=== PATIENT | female | born 1960 | race Caucasian/White ===

== ENCOUNTER → 2020-10-12 13:10 | Outpatient (REF) | payer OTHER, SELFPAY | LOC: ANHLAB 13:10 | PROVIDERS: PCP Internal Medicine; Visit Provider Nurse Practitioner | DX: L98.0 Pyogenic granuloma (principal) | CPT/HCPCS: 88305 ==

== ENCOUNTER → 2022-07-09 13:12 | Outpatient (CLI) | payer OTHER, SELFPAY ==
--- NOTE | ~2022-07-09 | DEXA_ITS ---
Bone Density Report Name: LANDRY IRBY Age: 61 Sex: Female Ethnicity: White Date of : 1960 Indication: postmenopausal; screening for osteoporosis; Referring Provider: RADHIKA WALLER Study: Bone densitometry was performed. Exam Date: July 09, 2022 Accession number: [id number] Bone Density: Region BMD T-score Z-score Classification AP Spine (L1-L4) 1.022 -0.2 1.4 Normal Femoral Neck (Left) 0.990 1.3 2.7 Normal Total Hip (Left) 0.989 0.4 1.5 Normal Femoral Neck (Right) 0.826 -0.2 1.2 Normal Total Hip (Right) 1.003 0.5 1.6 Normal Total Hip Mean 0.996 0.5 1.6 Normal World Health Organization criteria for BMD impression classify patients as: Normal (T-score at or above -1.0), Osteopenia (T-score between -1.0 and -2.5), or Osteoporosis (T-score at or below -2.5). 10-year Fracture Risk: FRAX not reported because: All T-scores for Spine Total, Hip Total, Femoral Neck at or above -1.0 Previous Exams: Region Exam Age BMD T-score BMD Change BMD Change Date g/cm2 vs Baseline vs Previous AP Spine(L1-L4) 07/09/2022 61 1.022 -0.2 -0.056* -0.034* 04/13/2015 54 1.056 0.1 -0.022 -0.022 03/25/2013 52 1.079 0.3 Total Hip(Left) 07/09/2022 61 0.989 0.4 -0.001 0.026 04/13/2015 54 0.964 0.2 -0.026 -0.026 03/25/2013 52 0.990 0.4 Total Hip(Right) 07/09/2022 61 1.003 0.5 0.027* 0.026 04/13/2015 54 0.977 0.3 0.001 0.001 03/25/2013 52 0.975 0.3 *Denotes significance at 95% confidence level, LSC for AP Spine = 0.022 g/cm2, LSC for Total Hip = 0.027 g/cm2 Clinical Information Provided by Patient: Has used the following medications: Vitamin D, MTV Patient maximum height was 64.5 Menopause Age: 52 No regular weight bearing exercise Drinks caffeinated beverages Onset of menses at age 11 Number of children 3 Impression: The patient has normal bone mass. The BMD for the AP Spine(L1-L4) decreased, changing by -0.034 since the last DXA exam. Discussion: BONE DENSITY IS ABOVE THE MINIMUM DESIRABLE LEVEL AT ALL SKELETAL SITES TESTED. This patient?s bone mineral density is above the minimum desirable level (T-score -1.0 or better) at all sites measured. The patient should follow a healthful lifestyle (good nutrition with adequate calcium and vitamin D, and appropriate weight-bearing exercise). Follo
== END ==
PROVIDERS: PCP Obstetrics & Gynecology Gynecology; Visit Provider Obstetrics & Gynecology Gynecology
DX: Z78.0 Asymptomatic menopausal state (principal)
CPT/HCPCS: 77080

== ENCOUNTER → 2023-04-07 10:00 | Outpatient (CLI) | payer OTHER, SELFPAY ==
--- NOTE | ~2023-04-07 | MM_ITS ---
EXAMINATION: MM screening tanmay BI w lois HISTORY: Screening TECHNIQUE: Craniocaudal and mediolateral oblique 3-D tomosynthesis images were obtained and synthetic 2-D images were generated. CAD analysis was submitted and interpreted. COMPARISON: Comparison to multiple prior studies sequentially, with oldest reviewed study dated 04/11. BREAST PARENCHYMAL COMPOSITION: There are scattered areas of fibroglandular density. FINDINGS: There is no evidence of suspicious mass, calcification, or architectural distortion to sugg est malignancy in either breast. There has been no suspicious interval change. IMPRESSION: 1. No mammographic evidence of malignancy. 2. Recommend routine screening mammography in one year. BI-RADS Category 1: Negative Reviewed, dictated and finalized at location A.
== END ==
PROVIDERS: PCP Obstetrics & Gynecology Gynecology; Visit Provider Obstetrics & Gynecology Gynecology
DX: Z12.31 Encounter for screening mammogram for malignant neoplasm of breast (principal)
CPT/HCPCS: 77063; 77067

== ENCOUNTER 2023-12-09 00:37 | Day surgery (SDC) | payer OTHER, SELFPAY ==
[2023-11-24 13:50] VITALS: BMI 29.2
--- NOTE | 2023-12-09 12:01 | P.PNAN_ITS ---
Anes - Initial Pre Proc Eval Procedure: Operation Date: 12/09/23 12:30 Proposed Procedures p Colonoscopy - Johnny Hurley MD Date/Time: 12/09/23 12:01 Surgeon: Johnny Hurley MD Pre Op Diagnosis: ulcerative colitis, unspecified Patient Data Age: 63 Gender: F Height: 1.63 m Weight: 77.2 kg Allergies Allergy/AdvReac Type Severity Reaction Status Date / Time NSAIDS (Non-Steroidal Allergy Severe Swelling Verified 12/09/23 12:01 Anti-Inflamma of Lip/Tongue/Throat Home Medications Medication Instructions Recorded Confirmed Type olmesartan 20 mg tablet 20 mg PO DAILY 10/02/20 11/24/23 History atorvastatin 10 mg tablet 10 mg PO DAILY 11/24/23 11/24/23 History cholecalciferol (vitamin D3) 50 50 mcg PO DAILY 11/24/23 11/24/23 History mcg (2,000 unit) capsule (Vitamin D3) fwcioklg-ifl-pkxmz ac 400 1 tablet PO DAILY 11/24/23 11/24/23 History mcg-calcium carb 500 mg-vit K1 20 mcg tablet (Women's 50 Plus Multivitamin) omega-3 fatty acids 2,400 mg PO BID 11/24/23 11/24/23 History Patient hx anesthesia problems: none Family hx anesthesia problems: none Results Review: All pre-operative results and documents have been reviewed as part of the pre- operative evaluation. FOR[facility]LY [facility] Past Medical History Medical History Hypertension Overweight Ulcerative colitis Surgical History Surgical History History of breast surgery Removal of calcifications History of tubal ligation Family History Family History Mother Acute arthritis Father Diabetes mellitus Social History Social History Smoking status: Never smoker Alcohol intake: current Substance use: never Substance use type: does not use Living arrangements: with family Spiritual care concerns: No Anes - Eval Final PreProcedure Day of Procedure 12/09/23 12:01 Patient weight: normal Heart: regular rate and rhythm Lungs: clear to auscultation Airway: Mallampati scale class II Neurological: alert and oriented Last oral intake: >/= 8 hours ASA classification: II Emergent: no Anesthetic plan: proceed Anesthesia type and monitoring: general GIVS and standard monitoring Results Review: All pre-operative results and documents have been reviewed as part of the pre- operative evaluation. Informed Consent: The patient's anesthetic plan and its attendant risks and benefits were discussed with the patient/family/POA. Questions were solicited and answers provided to the satisfaction of the patient/family/POA.
[2023-12-09 12:02] VITALS: BP 143/73; PULSE 81; RESP 18; TEMP 36.5; O2SAT 97
[2023-12-09] MEDS: LACTATED RINGERS 1,000 ML 150 ML IV CONT (12:03)
--- NOTE | 2023-12-09 12:22 | PM.HPGS ---
History of Present Illness History of Present Illness Consent: Risks, benefits, and alternatives have been discussed and questions answered. Patient agrees to proceed with procedure. Chief complaint: colon screening Narrative: Annika Goldman is a 63 year old female here for screening colonoscopy, last one 5 years ago. She says that years ago diagnosed with colitis and took oral medication for some time. She denies any diarrhea or gi symptoms, not taking meds for GI condition. Review of Systems Review of Systems: All systems reviewed & are unremarkable except as noted in HPI and below PMFSH Past Medical History Medical History (Updated 12/09/23 @ 12:23 by Johnny Hurley MD) Colon cancer screening Hypertension Overweight Ulcerative colitis Surgical History Surgical History History of breast surgery Removal of calcifications History of tubal ligation Family History Family History Mother Acute arthritis Father Diabetes mellitus Social History Social History Smoking status: Never smoker Alcohol intake: current Substance use: never Substance use type: does not use Living arrangements: with family Spiritual care concerns: No Meds Home Medications and Allergies Home Medications Medication Instructions Recorded Confirmed Type olmesartan 20 mg tablet 20 mg PO DAILY 10/02/20 11/24/23 History atorvastatin 10 mg tablet 10 mg PO DAILY 11/24/23 11/24/23 History cholecalciferol (vitamin D3) 50 50 mcg PO DAILY 11/24/23 11/24/23 History mcg (2,000 unit) capsule (Vitamin D3) tupawhuy-ile-hwqez ac 400 1 tablet PO DAILY 11/24/23 11/24/23 History mcg-calcium carb 500 mg-vit K1 20 mcg tablet (Women's 50 Plus Multivitamin) omega-3 fatty acids 2,400 mg PO BID 11/24/23 11/24/23 History Allergies Allergy/AdvReac Type Severity Reaction Status Date / Time NSAIDS (Non-Steroidal Allergy Severe Swelling Verified 12/09/23 12:01 Anti-Inflamma of Lip/Tongue/Throat Vital Signs Vital Signs - 24 hr 12/09/23 12:02 Temperature 97.7 F Pulse Rate 81 Respiratory Rate 18 Blood Pressure 143/73 H Pulse Oximetry 97 Oxygen Delivery Room Air Exam Const: General: comfortable and no acute distress HENMT: Face/Nose/Sinus: Normal nares present Eyes: General: appearance normal, both eyes and all related structures Neck: Neck: no JVD Resp: Auscultation: clear to auscultation bilaterally Cardio: Rate: regular rate Rhythm: regular rhythm GI: Inspection: non-distended GI Palp: Yes Soft to palpation Skin: General skin exam: normal color Neuro: General: gait normal Speech: normal speech Extrem: General: normal to inspection Psych: Mental Status: mental status grossly normal Assessment and Plan Assessment and plan (1) Colon cancer screening: Code(s): Z12.11 - Encounter for screening for malignant neoplasm of colon Status: Acute Assessment and Plan: colonoscopy ? remote history of colitis- will assess today, she is asymptomatic and not taking any medication
[2023-12-09 12:43] VITALS: BP 87/45; PULSE 74; RESP 18; O2SAT 96
[2023-12-09 12:53] VITALS: BP 120/60; PULSE 76; RESP 20; O2SAT 97
[2023-12-09 13:03] VITALS: BP 119/70; PULSE 66; RESP 18; O2SAT 98
== END 2023-12-09 13:13 | disposition home or self-care (01) ==
PROVIDERS: PCP Internal Medicine; Visit Provider Internal Medicine Gastroenterology
PROC: 0DJD8ZZ Inspection of Lower Intestinal Tract, Via Natural or Artificial Opening Endoscopic (ICD-10-PCS; CPT 45378; principal; 2023-12-09 12:30)
DX: Z12.11 Encounter for screening for malignant neoplasm of colon (principal); K64.8 Other hemorrhoids; I10 Essential (primary) hypertension; Z87.19 Personal history of other diseases of the digestive system
CPT/HCPCS: 45378; J2001; J2704; J7120

== ENCOUNTER 2024-04-09 12:46 | Outpatient (CLI) | payer OTHER, SELFPAY ==
--- NOTE | ~2024-04-09 | MM_ITS ---
EXAMINATION: MM screening tanmay BI w lois HISTORY: Screening mammogram TECHNIQUE: Craniocaudal and mediolateral oblique 3-D tomosynthesis images were obtained and synthetic 2-D images were generated. CAD analysis was submitted and interpreted. COMPARISON: 04/07/2023, 11/04/2016 BREAST PARENCHYMAL COMPOSITION:Not Dense. There are scattered areas of fibroglandular density. FINDINGS: No suspicious mass, calcification, or architectural distortion are identified in either kinjal ast to suggest malignancy. There has been no suspicious interval change. IMPRESSION: No mammographic evidence of malignancy. Recommend routine screening mammography in one year. BI-RADS Category 1: Negative Reviewed, dictated and finalized at location .
== END 2024-04-09 12:47 | disposition home or self-care (01) ==
LOC: MICIMG 12:47
PROVIDERS: PCP Internal Medicine; Visit Provider Obstetrics & Gynecology Gynecology
DX: Z12.31 Encounter for screening mammogram for malignant neoplasm of breast (principal)
CPT/HCPCS: 77063; 77067

== ENCOUNTER 2025-04-12 11:22 | Outpatient (CLI) | payer MEDICARE, SELFPAY ==
--- NOTE | ~2025-04-12 | MM_ITS ---
EXAMINATION: MM screening tanmay BI w lois HISTORY: Screening TECHNIQUE: Craniocaudal and mediolateral oblique 3-D tomosynthesis images were obtained and synthetic 2-D images were generated. CAD analysis was submitted and interpreted. COMPARISON: 04/07/2023 BREAST PARENCHYMAL COMPOSITION: The breasts are heterogeneously dense, which may obscure small masses. FINDINGS: There is no evidence of suspicious mass, calcification, or architectural distortion to suggest malignancy. There has been no suspicious interval change. IMPRESSION: 1. No mammographic evidence of malignancy. Recommend routine screening mammography in one year. BI-RADS Category 2: Benign finding(s) Reviewed, dictated and finalized at location Q. IMPRESSION: 1. No mammographic evidence of malignancy. Recommend routine screening mammogra phy in one year. BI-RADS Category 2: Benign finding(s)
== END 2025-04-12 11:23 | disposition home or self-care (01) ==
LOC: MICIMG 11:23
PROVIDERS: PCP Internal Medicine; Visit Provider Obstetrics & Gynecology Gynecology
DX: Z12.31 Encounter for screening mammogram for malignant neoplasm of breast (principal)
CPT/HCPCS: 77063; 77067

== ENCOUNTER 2025-06-20 10:20 | Outpatient (CLI) | payer MEDICARE, SELFPAY ==
--- NOTE | ~2025-06-20 | DEXA_ITS ---
Bone Density Report Name: LANDRY IRBY Age: 64 Sex: Female Ethnicity: White Date of : 1960 Indication: postmenopausal; screening for osteoporosis; Referring Provider: RADHIKA WALLER Study: Bone densitometry was performed. Exam Date: June 20, 2025 Accession number: [id number] Bone Density: Region BMD T-score Z-score Classification AP Spine(L1-L4) 1.005 -0.4 1.4 Normal Femoral Neck (Left) 0.741 -1.0 0.6 Normal Total Hip (Left) 0.868 -0.6 0.7 Normal Femoral Neck (Right) 0.749 -0.9 0.6 Normal Total Hip (Right) 0.879 -0.5 0.7 Normal Total Hip Mean 0.873 -0.6 0.7 Normal World Health Organization criteria for BMD impression classify patients as: Normal (T-score at or above -1.0), Osteopenia (T-score between -1.0 and -2.5), or Osteoporosis (T-score at or below -2.5). 10-year Fracture Risk: FRAX not reported because: All T-scores for Spine Total, Hip Total, Femoral Neck at or above -1.0 Previous Exams: -- Region Exam Age BMD T-score BMD Change BMD Change Date g/cm2 vs Baseline vs Previous -- AP Spine (L1-L4) 06/20/2025 64 1.005 -0.4 -6.9%* -1.7% 07/09/2022 61 1.022 -0.2 -5.2%* -3.2%* 04/13/2015 54 1.056 0.1 -2.1% -2.1% 03/25/2013 52 1.079 0.3 Total Hip(Left) 06/20/2025 64 0.868 -0.6 -12.3%* -12.3%* 07/09/2022 61 0.989 0.4 -0.1% 2.7% 04/13/2015 54 0.964 0.2 -2.6% -2.6% 03/25/2013 52 0.990 0.4 Total Hip(Right) 06/20/2025 64 0.879 -0.5 -9.9%* -12.4%* 07/09/2022 61 1.003 0.5 2.8%* 2.6% 04/13/2015 54 0.977 0.3 0.1% 0.1% 03/25/2013 52 0.975 0.3 -- *Denotes significance at 95% confidence level, LSC for AP Spine = 0.022 g/cm2, LSC for Total Hip = 0.027 g/cm2 Clinical Information Provided by Patient: Has used the following medications: Vitamin D Patient maximum height was 64 Menopause Age: 52 No regular weight bearing exercise Drinks caffeinated beverages Onset of menses at age 11 Number of children 3 Impression: The patient has normal bone mass. The BMD for the Total Hip(Left) decreased, changing by -12.3% since the last DXA exam. The BMD for the Total Hip(Right) decreased, changing by -12.4% since the last DXA exam. Discussion: BONE DENSITY IS ABOVE THE MINIMUM DESIRABLE LEVEL AT ALL SKELETAL SITES TESTED. This patient?s bone mineral density is above the minimum desirable level (T-score -1.0 or better) at all sites measured. The patient should follow a healthful lifestyle (good nutrition with adequate calcium and vitamin D, and appropriate weight-bearing exercise). Follow-Up: Consider repeating this study in 3 to 4 years to reassess this patient's status, or sooner if there is some new clinical indication. Reported by: RADHA on 06/20/2025 10:38:00 AM. Reviewed, dictated and finalized at location A.
== END 2025-06-20 10:21 | disposition home or self-care (01) ==
LOC: MICIMG 10:21
PROVIDERS: PCP Internal Medicine; Visit Provider Obstetrics & Gynecology Gynecology
DX: Z78.0 Asymptomatic menopausal state (principal)
CPT/HCPCS: 77080